=== PATIENT | male | born 1995 | race African-American/Black ===

== ENCOUNTER 2025-01-15 08:29 | Emergency (ER) | payer MEDICAID ==
[~2025-01-15] VITALS: Ht 172.7 cm; Wt 70.0 kg
[2025-01-15 08:30] VITALS: BP 129/97; TEMP 36.6; O2SAT 99
[2025-01-15] MEDS ORDERED: ALBU18HF2 IH (09:36)
[2025-01-15] MEDS ORDERED: ONDA-239 PO (09:36)
[2025-01-15] MEDS ORDERED: MELO-105 MT (09:36)
[2025-01-15] MEDS: KETOROLAC 30MG/ML VIAL IM ONE (09:45)
[2025-01-15] MEDS: ONDANSETRON 4MG ODT PO ONE (09:45)
[2025-01-15 10:06] VITALS: PULSE 70; RESP 20
[2025-01-15] MEDS: IPRATROPIUM/ALBUTEROL 0.5-3(2.5)MG/3ML NEB HHN ONE (10:06)
== END 2025-01-15 11:15 | disposition home or self-care (01) ==
LOC: ER 08:29
DX: J45.901 Unspecified asthma with (acute) exacerbation (principal); Z79.1 Long term (current) use of non-steroidal anti-inflammatories (NSAID)
CPT/HCPCS: 94640; 96372; 99283; Q0162; J1885; Z7610 ×3; 94070